=== PATIENT | male | born 1990 | race African-American/Black ===

== ENCOUNTER → 2021-06-20 | Outpatient (CLI) | payer BC ==
--- NOTE | 2021-06-20 15:54 | XR ---
Lumbosacral spine HISTORY: Back pain 5 views of lumbosacral spine, no comparisons Lumbar vertebral bodies show preserved height, alignment, and bone mineralization. Disc spaces are ma intained. There is no evidence spondylolysis or paraspinal mass. IMPRESSION: Normal lumbar spine
--- NOTE | 2021-06-20 16:11 | XR ---
Thoracic spine HISTORY: There is a slight spinal curvature. Thoracic vertebral bodies show preserved height and alignment. Nahum ne mineralization is maintained. Disc spaces are normal. There is multilevel spondylosis. No paraspin al mass. IMPRESSION: Mild thoracic spondylosis, spinal curvature.
--- NOTE | 2021-06-20 16:12 | XR ---
Cervical spine HISTORY: Pain 6 views of the cervical spine There is no evident foraminal encroachment although oblique images are limited for evaluation. Cervic al vertebral bodies show preserved height, alignment, and bone mineralization. There is loss of disc height at C5-6. Mild spondylosis is present at C4-5. Prevertebral soft tissues are normal. IMPRESSION: Mild degenerative disc disease.
== END | disposition home or self-care (01) ==
LOC: RADXRMAIN 12:56
PROVIDERS: ATTEND Physician Assistant
DX: M47.814 Spondylosis without myelopathy or radiculopathy, thoracic region (principal); M50.30 Other cervical disc degeneration, unspecified cervical region; M54.5 Low back pain
CPT/HCPCS: 72050; 72070; 72110